=== PATIENT | male | born 1960 | race Two or more races ===

== ENCOUNTER → 2020-11-02 | Day surgery (SDC) | payer BC, OTHER ==
[~2020-11-02] MED LIST: ASPIRIN81 MG PO; COQ-10100 MG PO; CRANBERRY450 M2 PO; CRESTOR10 MG PO; HYOSCYAMINE SULFATE 0.5 MG/ML INJ ONE; LIDOCAINE HCL 2% LOCAL INJ 5 ML SDV VIAL INJ ONE; METFORMIN HCL500 MG PO; MIDAZOLAM HCL 2 MG/2 ML VIAL ONE; PROPOFOL IV EMULSION 10 MG/ML 20 ML VIAL ONE; VITAMIN B-121000 MC1 PO
[2020-11-02 11:40] VITALS: BP 114/95
== END | disposition home or self-care (01) ==
LOC: OR 09:04 → EDSEX 10:00
PROVIDERS: ATTEND Internal Medicine Gastroenterology
DX: Z12.11 Encounter for screening for malignant neoplasm of colon (principal); D12.5 Benign neoplasm of sigmoid colon; K57.30 Diverticulosis of large intestine without perforation or abscess without bleeding; K62.1 Rectal polyp; K64.8 Other hemorrhoids; Z68.29 Body mass index [BMI] 29.0-29.9, adult; I10 Essential (primary) hypertension; E78.00 Pure hypercholesterolemia, unspecified; Z01.810 Encounter for preprocedural cardiovascular examination
CPT/HCPCS: 36415; 45378; 45384; 45385; 82948; 93005; J1980; J2001; J2250